=== PATIENT | male | born 1955 | race Asian ===

== ENCOUNTER 2017-06-05 06:54 | Day surgery (SDC) | payer OTHER | END 2017-06-05 14:02 | disposition home or self-care (01) | LOC: GIL 06:54 | DX: Z12.11 Encounter for screening for malignant neoplasm of colon (principal); D12.3 Benign neoplasm of transverse colon; K57.90 Diverticulosis of intestine, part unspecified, without perforation or abscess without bleeding; K64.8 Other hemorrhoids; E11.9 Type 2 diabetes mellitus without complications; I10 Essential (primary) hypertension | CPT/HCPCS: 45380; 82962; 88305 ==